=== PATIENT | male | born 1955 | race Caucasian/White ===

== ENCOUNTER → 2017-06-28 07:15 | Outpatient (CLI) | payer OTHER, SELFPAY ==
[2017-06-28 08:57] LABS: ALB/GLOB Ratio 1.2 RATIO (0.9-2.4); AST(SGOT) 41 U/L (15-37); Alanine Aminotransfer ALT/SGPT 43 U/L (16-61); Albumin, Serum 3.5 g/dL (3.2-5.0); Alkaline Phosphatase 78 U/L (45-117); Anion Gap 6 (5-15); BUN 15 mg/dL (7-18); BUN/Creat Ratio 18.3 RATIO (10-20); Calcium,Total 8.4 mg/dL (8.5-10.1); Chloride 105 mmol/L (98-107); Cholesterol 175 mg/dL (200); Creatinine, Serum 0.82 mg/dL (0.70-1.30); EST Glomerular Filtration Rate 102 mL/min (>60); Est Glom Filt Rate - Afr Amer 123 mL/min (>60); Glucose 82 mg/dL (74-106); High Density Lipoprotein 41 mg/dL; Potassium 3.9 mmol/L (3.5-5.1); Protein, Total 6.5 g/dL (6.4-8.2); Sodium Level 139 mmol/L (136-145); Triglycerides 57 mg/dL; Very Low Density Lipoprotein 11 mg/dL (5-40)
== END ==
PROVIDERS: Family Provider Family Medicine; PCP Family Medicine; Visit Provider Family Medicine
DX: Z00.00 Encounter for general adult medical examination without abnormal findings (principal)
CPT/HCPCS: 36415; 80053; 80061

== ENCOUNTER → 2018-10-28 09:36 | Outpatient (CLI) | payer OTHER, SELFPAY ==
[2018-10-28 08:58] VITALS: BMI 34.2
[2018-10-28 13:07] LABS: Anion Gap 8 (5-15); BUN 10 mg/dL (7-18); BUN/Creat Ratio 12.6 RATIO (10-20); Calcium,Total 8.8 mg/dL (8.5-10.1); Chloride 106 mmol/L (98-107); Cholesterol 187 mg/dL (200); EST Glomerular Filtration Rate 105 mL/min (>60); Est Glom Filt Rate - Afr Amer 127 mL/min (>60); Glucose 84 mg/dL (74-106); High Density Lipoprotein 46 mg/dL; Potassium 4.1 mmol/L (3.5-5.1); Sodium Level 140 mmol/L (136-145); Triglycerides 116 mg/dL; Very Low Density Lipoprotein 23 mg/dL (5-40)
== END ==
PROVIDERS: Family Provider Family Medicine; PCP Family Medicine; Visit Provider Family Medicine
DX: Z00.00 Encounter for general adult medical examination without abnormal findings (principal)
CPT/HCPCS: 36415; 80048; 80061

== ENCOUNTER → 2018-11-26 15:22 | Outpatient (CLI) | payer OTHER, SELFPAY ==
[2018-10-28 08:58] VITALS: BMI 34.2
--- NOTE | 2018-11-26 15:33 | MRI_ITS ---
STUDY: MRI BRAIN WITH AND WITHOUT CONTRAST (ATTENTION INTERNAL AUDITORY CANALS - I.A.C.'s) REASON FOR EXAM: Male, 63 years old. Right-sided hearing loss for many years TECHNIQUE: Standardized multiplanar fat and water weighted pulse sequences were obtained. IV Dotarem 20 was administered for the contrast portion of the examination. COMPARISON: None. FINDINGS: Normal bilateral temporal bones. Normal bilateral internal auditory canals. There is no demonstrated intracanalicular or cisternal vestibular schwannoma (acoustic neuroma). There is no enhancement of the bilateral VIIth or VIIIth cranial nerves. Normal bilateral cochlea, vestibules and semicircular canals. Normal size of the ventricles and extra-axial spaces for the patient's age. Normal white matter tracts of the supratentorial brain. Normal bilateral basal ganglia. Normal thalami. Normal flow voids within the major intracranial circulation suggesting patency by spin echo criteria. Normal venous enhancement. There is no enhancing intra-axial or extra-axial abnormality. There is no extra-axial fluid accumulation. Normal sella turcica, pituitary gland, infundibular stalk, optic chiasm and hypothalamus. Normal tectal plate and pineal gland. Normal midbrain, margarito and medulla. Normal cerebellum. Normal basal cisterns. No demonstrated orbital abnormality, within the constraints of a routine brain study. Normal visualized paranasal sinuses. Normal calvarium and skull base. Normal visualized soft tissue structures. Normal visualized upper cervical spine. MRI/Brain W/WO Contrast IMPRESSION: Normal unenhanced and enhanced MRI of the bilateral internal auditory canals (I.A.C's). Electronically Signed: Marck Zavala MD at 17:22 EDT Tel , Service support ,
== END ==
PROVIDERS: Family Provider Family Medicine; PCP Family Medicine; Referring Provider Otolaryngology; Visit Provider Otolaryngology
DX: H91.90 Unspecified hearing loss, unspecified ear (principal)
CPT/HCPCS: 70553; A9575

== ENCOUNTER → 2019-09-07 09:00 | Outpatient (CLI) | payer OTHER, SELFPAY ==
[2019-09-07 08:26] VITALS: BMI 34.2
[2019-09-07 12:40] LABS: ALB/GLOB Ratio 1.1 RATIO (0.9-2.4); AST(SGOT) 28 U/L (15-37); Alanine Aminotransfer ALT/SGPT 38 U/L (16-61); Albumin, Serum 3.8 g/dL (3.2-5.0); Alkaline Phosphatase 79 U/L (45-117); Anion Gap 5 (5-15); BUN 9 mg/dL (7-18); BUN/Creat Ratio 10.2 RATIO (10-20); Calcium,Total 9.1 mg/dL (8.5-10.1); Chloride 104 mmol/L (98-107); Cholesterol 188 mg/dL (200); Creatinine, Serum 0.89 mg/dL (0.70-1.30); EST Glomerular Filtration Rate 93 mL/min (>60); Est Glom Filt Rate - Afr Amer 112 mL/min (>60); Globulin 3.4 g/dL (2.2-4.2); Glucose 90 mg/dL (74-106); High Density Lipoprotein 46 mg/dL; Potassium 4.4 mmol/L (3.5-5.1); Protein, Total 7.2 g/dL (6.4-8.2); Sodium Level 139 mmol/L (136-145); Triglycerides 94 mg/dL; Very Low Density Lipoprotein 19 mg/dL (5-40)
== END ==
PROVIDERS: PCP Family Medicine; Referring Provider Family Medicine; Visit Provider Family Medicine
DX: Z00.00 Encounter for general adult medical examination without abnormal findings (principal)
CPT/HCPCS: 36415; 80053; 80061

== ENCOUNTER → 2020-09-27 08:06 | Outpatient (CLI) | payer OTHER, SELFPAY ==
[2020-06-21 08:25] VITALS: BMI 35.4
[2020-09-27 12:29] LABS: ALB/GLOB Ratio 1.1 RATIO (0.9-2.4); AST(SGOT) 31 U/L (15-37); Alanine Aminotransfer ALT/SGPT 44 U/L (16-61); Albumin, Serum 4.1 g/dL (3.2-5.0); Alkaline Phosphatase 82 U/L (45-117); Anion Gap 6 (5-15); BUN 11 mg/dL (7-18); Calcium,Total 9.1 mg/dL (8.5-10.1); Chloride 104 mmol/L (98-107); Cholesterol 228 mg/dL (200); Creatinine, Serum 0.85 mg/dL (0.70-1.30); EST Glomerular Filtration Rate 97 mL/min (>60); Est Glom Filt Rate - Afr Amer 118 mL/min (>60); Globulin 3.6 g/dL (2.2-4.2); Glucose 86 mg/dL (74-106); High Density Lipoprotein 47 mg/dL; Potassium 4.3 mmol/L (3.5-5.1); Protein, Total 7.7 g/dL (6.4-8.2); Sodium Level 139 mmol/L (136-145); Triglycerides 128 mg/dL; Very Low Density Lipoprotein 26 mg/dL (5-40)
== END ==
PROVIDERS: PCP Family Medicine; Referring Provider Family Medicine; Visit Provider Family Medicine
DX: N52.9 Male erectile dysfunction, unspecified (principal)
CPT/HCPCS: 36415; 80053; 80061

== ENCOUNTER → 2022-03-28 | Outpatient (CLI) | payer OTHER, SELFPAY ==
[2022-03-28 13:06] LABS: ALB/GLOB Ratio 1.2 RATIO (0.9-2.4); AST(SGOT) 29 U/L (15-37); Alanine Aminotransfer ALT/SGPT 37 U/L (16-61); Albumin, Serum 3.8 g/dL (3.2-5.0); Alkaline Phosphatase 75 U/L (45-117); Anion Gap 7 (5-15); BUN 14 mg/dL (7-18); BUN/Creat Ratio 15.7 RATIO (10-20); Calcium,Total 8.9 mg/dL (8.5-10.1); Chloride 105 mmol/L (98-107); Cholesterol 229 mg/dL (200); Creatinine, Serum 0.89 mg/dL (0.70-1.30); EST Glomerular Filtration Rate 91 mL/min (>60); Est Glom Filt Rate - Afr Amer 110 mL/min (>60); Globulin 3.3 g/dL (2.2-4.2); Glucose 95 mg/dL (74-106); High Density Lipoprotein 47 mg/dL; Potassium 3.9 mmol/L (3.5-5.1); Protein, Total 7.1 g/dL (6.4-8.2); Sodium Level 139 mmol/L (136-145); Triglycerides 100 mg/dL; Very Low Density Lipoprotein 20 mg/dL (5-40)
== END | disposition home or self-care (01) ==
LOC: BIMLAB 10:44
PROVIDERS: PCP Family Medicine; Referring Provider Family Medicine; Visit Provider Family Medicine
DX: N52.9 Male erectile dysfunction, unspecified (principal)
CPT/HCPCS: 36415; 80053; 80061

== ENCOUNTER → 2022-09-19 | Outpatient (CLI) | payer OTHER, SELFPAY ==
[2022-09-19 14:19] LABS: ALB/GLOB Ratio 1.2 RATIO (0.9-2.4); AST(SGOT) 28 U/L (15-37); Alanine Aminotransfer ALT/SGPT 37 U/L (16-61); Albumin, Serum 3.4 g/dL (3.2-5.0); Alkaline Phosphatase 86 U/L (45-117); Anion Gap 6 (5-15); BUN 10 mg/dL (7-18); Calcium,Total 8.5 mg/dL (8.5-10.1); Chloride 107 mmol/L (98-107); Cholesterol 113 mg/dL (200); Creatinine, Serum 0.84 mg/dL (0.70-1.30); EST Glomerular Filtration Rate 98 mL/min (>60); Est Glom Filt Rate - Afr Amer 119 mL/min (>60); Globulin 2.9 g/dL (2.2-4.2); Glucose 97 mg/dL (74-106); High Density Lipoprotein 46 mg/dL; Protein, Total 6.3 g/dL (6.4-8.2); Sodium Level 140 mmol/L (136-145); Triglycerides 47 mg/dL; Very Low Density Lipoprotein 9 mg/dL (5-40)
== END | disposition home or self-care (01) ==
LOC: BIMLAB 08:04
PROVIDERS: PCP Family Medicine; Referring Provider Family Medicine; Visit Provider Family Medicine
DX: E78.49 Other hyperlipidemia (principal)
CPT/HCPCS: 36415; 80053; 80061

== ENCOUNTER → 2023-10-31 | Outpatient (CLI) | payer MEDICARE, SELFPAY ==
[2023-10-31 12:39] LABS: ALB/GLOB Ratio 1.1 RATIO (0.9-2.4); AST(SGOT) 22 U/L (15-37); Alanine Aminotransfer ALT/SGPT 26 U/L (16-61); Albumin, Serum 3.6 g/dL (3.2-5.0); Alkaline Phosphatase 78 U/L (45-117); Anion Gap 6 (5-15); BUN 8 mg/dL (7-18); BUN/Creat Ratio 9.3 RATIO (10-20); Chloride 104 mmol/L (98-107); Cholesterol 123 mg/dL (200); Creatinine, Serum 0.86 mg/dL (0.70-1.30); EST Glomerular Filtration Rate 94 mL/min (>60); Est Glom Filt Rate - Afr Amer 114 mL/min (>60); Globulin 3.3 g/dL (2.2-4.2); Glucose 103 mg/dL (74-106); High Density Lipoprotein 52 mg/dL; Potassium 4.1 mmol/L (3.5-5.1); Protein, Total 6.9 g/dL (6.4-8.2); Sodium Level 137 mmol/L (136-145); Triglycerides 59 mg/dL; Very Low Density Lipoprotein 12 mg/dL (5-40)
== END | disposition home or self-care (01) ==
PROVIDERS: PCP Family Medicine; Referring Provider Family Medicine; Visit Provider Family Medicine
DX: E78.49 Other hyperlipidemia (principal); N52.9 Male erectile dysfunction, unspecified
CPT/HCPCS: 36415; 80053; 80061; 84153

== ENCOUNTER 2024-07-30 07:57 | Day surgery (SDC) | payer MEDICARE, SELFPAY ==
[2024-07-30] VITALS (7 sets, daily range): BP systolic 153–161; BP diastolic 73–83; PULSE 57–72; RESP 16; TEMP 36.1–36.4; O2SAT 99–100; BMI 32.5
--- NOTE | 2024-07-30 08:21 | PRE.ANES_ITS ---
ASA Classification* ASA Classification ASA Classification: 2 Assessment & Plan Anesthesia* Anesthesia Assessment Anesthesia Assessment: Discussed sedation and/or anesthesia options, risks, benefits, and alternatives with patient/parents/legal guardian/POA. Questions invited. The patient/parents/legal guardian/POA seems to understand and agrees to proceed with anesthesia plan. Reviewed the physical assessment, medical history, allergy history and patient home medications list prior to surgery/procedure/anesthetic and documented any changes. Performed airway and anesthesia risk assessments. Anesthesia Type Anesthesia Type: MAC Anesthesia Focused Assessment* Airway Assessment Mouth opens: >3 cm Mallampati Score: II Focused Labs Anesthesia Preop lab: CBC CHEMISTRY Potassium 4.1 mmol/L (3.5-5.1) 10/31/23 08:10/31/23 Sodium 137 mmol/L (136-145) 10/31/23 08:26 10/31/23 BUN 8 mg/dL (7-18) 10/31/23 08:26 10/31/23 Creatinine 0.86 mg/dL (0.70-1.30) 10/31/23 08:26 10/31/23 Glucose 103 mg/dL (74-106) 10/31/23 08:26 10/31/23 COAG Pre-Assessment Diagnosis/Proposed Procedure Planned Operative Procedure(s): Colonoscopy - Open Access Anesthesia History Anesthesia History - verification rep: Anesthesia History - verification rep Hx Hospitalization No 07/28/24 11:40 Any Problems With Anesthesia No 07/28/24 11:40 Cholinesterase deficiency No 07/28/24 11:40 You/Your Family Experience No 07/28/24 11:40 fever (hyperthermia) with Relationship Recent Exposure to Contagious Disease Does patient have nerve No 07/28/24 11:40 stimulator Patient instructed to have device shut off --Does patient have Pacemaker or ICD? When Was Last Pacemaker Check QUESTION #4 FULL TEXT: You/Your Family Experience fever (hyperthermia) with Anesthesia Last Oral Intake Last Oral intake: Last Oral Intake NPO since Meds taken in AM with sips of water? Meds patient instructed to take am of surgery PONV PONV - verification rep: PONV - verification rep Female No 07/28/24 11:40 HX of Motion Sickness No 07/28/24 11:40 HX of N/V After Surgery No 07/28/24 11:40 Non-Smoker Yes 07/28/24 11:40 Duration of Surgery greater No 07/28/24 11:40 than 60 minutes Number of Risk Factors 1 07/28/24 11:40 PONV Score Low Risk 07/28/24 11:40 Height & Weight Height & Weight: Anesthesia: Height & Weight Height 5 ft 9 in 10/28/23 15:59 Respiratory Assessment Respiratory Assessment - verification rep: Respiratory Tract Infection Hx - verification rep Hx Respiratory Tract Infection No 07/28/24 11:40 STOP Sleep Apnea STOP Sleep Apnea - verification rep: STOP Sleep Apnea - verification rep Hx Hypertension No 07/28/24 11:40 Hx Sleep Apnea No 07/28/24 11:40 CPAP BIPAP Do you snore loudly (louder Yes 07/28/24 11:40 than talking or can be heard Do you often feel tired/ No 07/28/24 11:40 fatigued/ sleepy during daytime? Has anyone observed you stop No 07/28/24 11:40 breathing during sleep? STOP Results Negative 07/28/24 11:40 QUESTION #5 FULL TEXT : Do you snore loudly (louder than talking or can be heard through closed doors)? Tobacco Use History Tobacco Use History - verification rep: Tobacco Use History - verification rep Tobacco Use Smoking Status Former smoker 07/28/24 11:40 Hx Tobacco Use No 07/28/24 11:40 Years Smoking Packs Smoked per Day Smoking Cessation Date was No - quit smoking greater 07/28/24 11:40 within the last 15 years than 15 years ago Hx Smoking Cessation Date Hx Smoking Cessation No 07/28/24 11:40 Counseling Hematologic Medial History Hematologic Hx - verification rep: Hematologic Medical Hx - technical asst Hx of Blood Transfusion No 07/28/24 11:40 Hx of Transfusion in last 3 No 07/28/24 11:40 Months Date of Last Transfusion (if within last 3 months) Ever experience any problems No 07/28/24 11:40 with transfusion(s)? Specify any problems Hx of Preganancy in last 3 N/A 07/28/24 11:40 Months Nurse Filling Out Transfusion VCHRISTIN 07/28/24 11:40 & Questions: Date: 07/28/24 07/28/24 11:40 Time: 11:41 07/28/24 11:40 Patient unable to answer at this time (ie. confused, unrespo /Reproduction History /Reproductive History - verification rep: /Reproductive Hx- verification rep Hx Now No 07/28/24 11:40 Gestational Age (in weeks): EDC: Hx Hx Para Hx Section SAB No 07/28/24 11:40 Active Medications Active Medications: Current Medications Generic Name Dose Route Start Last Admin Trade Name Freq PRN Reason Stop Dose Admin Lactated Ringer's 1,000 mls @ 15 mls/hr 07/30/24 08:15 IV .Q48H JAS PFSH Medical History Wears contact lenses Wears hearing aid Wears partial dentures Alcohol use Back pain Former smoker History of stress test Bacterial sinusitis Home Medications ?Medication ?Instructions ?Recorded ?Last Taken ?Type ibuprofen 200 mg tablet (Advil) 200 mg PO TID-QID PRN pain 08/21/17 Unknown History loratadine 10 mg tablet (Claritin) 10 mg PO QDAY PRN a llergy symptoms 08/21/17 Unknown History atorvastatin 20 mg tablet 20 mg PO DAILY #90 tabs 08/25 07/17 Unknown Rx sildenafil 100 mg tablet 100 mg PO ONCE #10 tabs 08/25 07/17 Unknown Rx Allergy/AdvReac Type Severity Reaction Status Date / Time No Known Allergies Allergy Verified 07/28/24 11:31 Family History Father Myocardial infarction Surgical History Hx of tonsillectomy History of rotator cuff surgery Social History adopted: No household members: spouse number of children: 1 current occupational status: retired pets and animals: No sexually active: Yes Smoking Status: Former smoker quit date: 02/24/03 Tobacco: How many years used: 25 how long ago did patient quit smokin alcohol intake: current alcohol intake frequency: a few times a month Alcohol type: beer and wine substance use type: does not use caffeine: Yes (3) Type: coffee what type of physical activity do you participate in: none frequency: daily seatbelt use: always do you feel safe at home: Yes Review of Systems (Anesthesia) ROS Narrative System reviewed and no additional complaints, except as documented.
[2024-07-30] MEDS: Lactated Ringers 1,000 ML 15 ML IV (08:36)
--- NOTE | 2024-07-30 09:07 | HP.PCM_ITS ---
HPI - General General Date of Admission: 07/30/24 Date of Service: 07/30/24 Chief Complaint: screening colonoscopy HPI Narrative NEMESIO RAMOS, is a 68 M who presents for colonoscopy. last scope was 16 years ago. No symptoms. No family histiery [facility] Medical History Wears contact lenses Wears hearing aid Wears partial dentures Alcohol use Back pain Former smoker History of stress test Bacterial sinusitis Home Medications ?Medication ?Instructions ?Recorded ?Last Taken ?Type ibuprofen 200 mg tablet (Advil) 200 mg PO TID-QID PRN pain 08/21/17 07/29/24 History loratadine 10 mg tablet (Claritin) 10 mg PO QDAY PRN a llergy symptoms 08/21/17 Unknown History atorvastatin 20 mg tablet 20 mg PO DAILY #90 tabs 08/25 07/17 Unknown Rx sildenafil 100 mg tablet 100 mg PO ONCE #10 tabs 08/25 07/17 Unknown Rx Allergy/AdvReac Type Severity Reaction Status Date / Time No Known Allergies Allergy Verified 07/30/24 08:35 Family History Father Myocardial infarction Surgical History Hx of tonsillectomy History of rotator cuff surgery Social History adopted: No household members: spouse number of children: 1 current occupational status: retired pets and animals: No sexually active: Yes Smoking Status: Former smoker quit date: 02/24/03 Tobacco: How many years used: 25 how long ago did patient quit smokin alcohol intake: current alcohol intake frequency: a few times a month Alcohol type: beer and wine substance use type: does not use caffeine: Yes (3) Type: coffee what type of physical activity do you participate in: none frequency: daily seatbelt use: always do you feel safe at home: Yes Vital Signs Vital Signs Vital Signs: 07/30/24 08:37 07/30/24 08:37 Temperature 97.6 F L Temperature Source Temporal Pulse Rate 70 Respiratory Rate 16 Respiratory Pattern Normal Blood Pressure 157/83 H Blood Pressure Mean 107 Blood Pressure Source Monitor Blood Pressure Position Sitting Blood Pressure Location Right Arm Pulse Ox 99 Oxygen Delivery Method Room Air Weight Weight: 233 lb 3.985 oz Body Mass Index (BMI) 32.5 Physical Exam Const alert, oriented x3 and no apparent distress Assessment & Plan Assessment/Plan (1) Encounter for screening colonoscopy: PLAN: Plan screening colonoscopy today
--- NOTE | 2024-07-30 09:43 | PCM.POST.ANE ---
Anesthesia: Postop Eval I Current Vital Signs Temperature: 97.3 F Pulse Rate: 72 Blood Pressure: 161/77 Respiratory Rate: 16 Pulse Ox: 100 Oxygen Delivery Method: Room Air Assessment Airway patent: Yes Spontaneous unlabored respirations: Yes Mental status: Awake and Calm nausea: No Vomiting: No Anesthesia Complication: No Fluid Hydration Crystalloid volume administer (ml): 500 Total IV fluid infused: 500 Progress Note Anesthesia document: Postop Eval 1 completed: Yes
--- NOTE | 2024-07-30 09:54 | OP.CCLET_ITS ---
07/30/2024 Artur Chatman Re : Colonoscopy procedure for Sam Self Dear Dr. Chatman This procedure was performed on Tuesday, July 30, 2024. My impressions and recommendations are as follows: Impressions : - Diverticulosis in the sigmoid colon. - No specimens collected. Recommendations : - Discharge patient to home (ambulatory). - High fiber diet indefinitely. - Repeat colonoscopy in 10 years for screening purposes. - Return to my office PRN. - Continue present medications. My findings are described in the full procedure note, which is enclosed. If I can be of further assistance, please feel free to contact me at . Sincerely, Lopez Cedeño MD 07/30/2024 9:53:56 AM This report has been signed electronically.
--- NOTE | 2024-07-30 09:54 | OP.COLON_ITS ---
Patient Name: Sam Self Procedure Date: 07/30/2024 9:14 AM Date of : 1955 Age: 68 Procedure: Colonoscopy Indications: Screening for colorectal malignant neoplasm Providers: Lopez Cedeño MD Referring MD: Artur Chatman Medicines: Monitored Anesthesia Care Patient Profile: Refer to note in patient chart for documentation of history and physical. Last Colonoscopy: more than 10 years ago. Complications: No immediate complications. Estimated blood loss: None. Procedure: Pre-Anesthesia Assessment: - Prior to the procedure, a History and Physical was performed, and patient medications and allergies were reviewed. The patient's tolerance of previous anesthesia was also reviewed. The risks and benefits of the procedure and the sedation options and risks were discussed with the patient. All questions were answered, and informed consent was obtained. Prior Anticoagulants: The patient has taken no anticoagulant or antiplatelet agents except for aspirin. ASA Grade Assessment: II - A patient with mild systemic disease. After reviewing the risks and benefits, the patient was deemed in satisfactory condition to undergo the procedure. After I obtained informed consent, the scope was passed under direct vision. Throughout the procedure, the patient's blood pressure, pulse, and oxygen saturations were monitored continuously. The adult colonoscope was introduced through the anus and advanced to the cecum, identified by appendiceal orifice and ileocecal valve. The ileocecal valve, appendiceal orifice, and rectum were photographed. The entire colon was well visualized. Moderate Sedation: See the other procedure note for documentation of moderate sedation with intraservice time. Scope In: 9:16:13 AM Scope Withdrawal Time 0 hours 6 minutes 44 seconds Scope Out: 9:34:06 AM Total Procedure Duration Time 0 hours 17 minutes 53 seconds Findings: The perianal and digital rectal examinations were normal. Multiple small-mouthed diverticula were found in the sigmoid colon. The exam was otherwise normal throughout the examined colon. Impression: - Diverticulosis in the sigmoid colon. - No specimens collected. Recommendation: - Discharge patient to home (ambulatory). - High fiber diet indefinitely. - Repeat colonoscopy in 10 years for screening purposes. - Return to my office PRN. - Continue present medications. Procedure Code(s): --- Professional --- 90610, Colonoscopy, flexible; diagnostic, including collection of specimen(s) by brushing or washing, when performed (separate procedure) Diagnosis Code(s): --- Professional --- K57.30, Diverticulosis of large intestine without perforation or abscess without bleeding Z12.11, Encounter for screening for malignant neoplasm of colon CPT copyright 2021 [employer]. All rights reserved. The codes documented in this report are preliminary and upon certified coder review may be revised to meet current compliance requirements. Lopez Cedeño MD 07/30/2024 9:53:56 AM This report has been signed electronically. Number of Addenda: 0 Note Initiated On: 07/30/2024 9:14 AM
--- NOTE | 2024-07-30 11:01 | POSTOPAN2_ITS ---
Anesthesia Postop Eval I Sum Postop Eval Completion status Anesthesia document: Postop Eval 1 completed: Yes Anesthesia Postop Eval I Summary Anesthesia Postop Eval I Summary: Anesthesia Postop Eval I: Assessment Summary Airway patent Yes 07/30/24 09:44 FAMILY LIVING [email or web address] Spontaneous unlabored Yes 07/30/24 09:44 FAMILY LIVING [email or web address] respirations Mental status Awake,Calm 07/30/24 09:44 FAMILY LIVING [email or web address] nausea No 07/30/24 09:44 FAMILY LIVING [email or web address] Vomiting No 07/30/24 09:44 FAMILY [email or web address] [email or web address] Anesthesia Postop Eval I: Fluid Summary Crystalloid volume administer 500 07/30/24 09:44 FAMILY [email or web address] [email or web address] (ml) Colloids volume administered ( ml) Blood Product volume administered (ml) Total IV fluid infused 500 07/30/24 09:44 FAMILY [email or web address] [email or web address] Anesthesia Postop Eval I: Summary Notes Anesthesia Complication No 07/30/24 09:44 FAMILY [email or web address] [email or web address] Anesthesia Complication Comment: Post-operative progress note Anesthesia: Postop Eval II Evaluation Mental status: Awake Pain Level: 0 nausea: No Vomiting: No
--- NOTE | 2024-07-30 11:01 | PCM.POSTANE2 ---
Anesthesia Postop Eval I Sum Postop Eval Completion status Anesthesia document: Postop Eval 1 completed: Yes Anesthesia Postop Eval I Summary Anesthesia Postop Eval I Summary: Anesthesia Postop Eval I: Assessment Summary Airway patent Yes 07/30/24 09:44 [email or web address] Spontaneous unlabored Yes 07/30/24 09:44 [email or web address] respirations Mental status Awake,Calm 07/30/24 09:44 [email or web address] nausea No 07/30/24 09:44 [email or web address] Vomiting No 07/30/24 09:44 [email or web address] Anesthesia Postop Eval I: Fluid Summary Crystalloid volume administer 500 07/30/24 09:44 [email or web address] (ml) Colloids volume administered ( ml) Blood Product volume administered (ml) Total IV fluid infused 500 07/30/24 09:44 [email or web address] Anesthesia Postop Eval I: Summary Notes Anesthesia Complication No 07/30/24 09:44 [email or web address] Anesthesia Complication Comment: Post-operative progress note Anesthesia: Postop Eval II Evaluation Mental status: Awake Pain Level: 0 nausea: No Vomiting: No
== END 2024-07-30 10:20 | disposition home or self-care (01) ==
LOC: EN 07:59 → AC 08:01
PROVIDERS: PCP Family Medicine; Referring Provider Family Medicine; Visit Provider Surgery
PROC: 0DJD8ZZ Inspection of Lower Intestinal Tract, Via Natural or Artificial Opening Endoscopic (ICD-10-PCS; CPT 45378; principal; 2024-07-30 08:55)
DX: Z12.11 Encounter for screening for malignant neoplasm of colon (principal); K57.30 Diverticulosis of large intestine without perforation or abscess without bleeding; Z87.891 Personal history of nicotine dependence
CPT/HCPCS: G0121

== ENCOUNTER → 2024-10-27 | Outpatient (CLI) | payer MEDICARE, SELFPAY ==
[2024-10-27 10:36] LABS: AST(SGOT) 27 U/L (<=37); Alanine Aminotransfer ALT/SGPT 28 U/L (<=46); Albumin, Serum 4.2 g/dL (3.4-4.8); Alkaline Phosphatase 83 U/L (40-129); Anion Gap 9 (5-15); BUN 10 mg/dL (4-19); BUN/Creat Ratio 11.9 RATIO (10-20); Calcium,Total 9.5 mg/dL (7.6-11.0); Carbon Dioxide 26.3 mmol/L (21.0-32.0); Chloride 104 mmol/L (98-108); Cholesterol 134 mg/dL (<=200); Globulin 2.4 g/dL (2.2-4.2); Glucose 95 mg/dL (70-99); Low Density Lipoprotein Calc. 66 mg/dL; PSA,Total - Annual Screen 1.49 ng/mL (0.02-4.00); Potassium 4.2 mmol/L (3.3-5.1); Triglycerides 95 mg/dL; Very Low Density Lipoprotein 19 mg/dL (5-40); cholesterol:hdl ratio screen 2.72
== END | disposition home or self-care (01) ==
LOC: MTLAB 08:39
PROVIDERS: PCP Family Medicine; Referring Provider Family Medicine; Visit Provider Family Medicine
DX: E78.49 Other hyperlipidemia (principal); Z12.5 Encounter for screening for malignant neoplasm of prostate
CPT/HCPCS: 36415; 80053; 80061; 84153; G0103